=== PATIENT | male | born 1935 | race Caucasian/White ===

== ENCOUNTER → 2017-01-13 | Outpatient (CLI) | payer MEDICARE, OTHER | END | disposition home or self-care (01) | LOC: CDC 11:43 | DX: Z01.810 Encounter for preprocedural cardiovascular examination (principal); R94.31 Abnormal electrocardiogram [ECG] [EKG] | CPT/HCPCS: 93000 ==

== ENCOUNTER 2017-02-05 21:18 | Inpatient (IN) | payer OTHER ==
[~2017-02-05] VITALS: Ht 175.3 cm; Wt 86.7 kg
[~2017-02-05 21:18] MED LIST: ATORVASTATIN CA80 MG PO; GARLIC100 MG PO; LISINOPRIL10 MG PO; LO-DOSE ASPIRIN81 M2 PO; VITAMIN E1000 UNI1 PO
[2017-02-06 07:52] VITALS: BP 190/83
[2017-02-06 13:51] LABS: CREATINE KINASE 47 IU/L (1-294); TOTAL CK 47 IU/L (1-294)
[2017-02-06 14:15] VITALS: BP 163/71
[2017-02-06 14:36] LABS: CK-MB 2.2 ng/mL (0.0-4.9)
[2017-02-06] MEDS ORDERED: HYDROCODON-ACE1 EAC7 PO (14:41)
[2017-02-06 15:30] VITALS: BP 145/67
[2017-02-06 19:46] VITALS: BP 124/61
[2017-02-06 23:56] VITALS: BP 142/67
[2017-02-07 03:00] VITALS: BP 142/78
[2017-02-07 06:01] LABS: HEMATOCRIT 31.9 % (38.0-50.0); MCH 31.1 PG (29.0-34.0); MCHC 34.5 G/DL (30.0-36.0); MCV 90.1 FL (86-99); MEAN PLAT.VOLUME 10.6 uM^3 (9.0-12.4); PLATELET COUNT 146 K/uL (156-360); RBC DIS.WIDTH-CV 13.3 % (11.8-14.6); RBC DIS.WIDTH-SD 44.1 % (39-53); RED BLOOD COUNT 3.54 M/uL (4.00-5.50); WHITE BLOOD COUNT 9.4 K/uL (4.1-10.2)
[2017-02-07 06:13] LABS: ANION GAP 7 MEQ/L (2-14); CREATINE KINASE 47 IU/L (1-294); GFR ESTIMATE (CALCULATED) > 59 mL/min/ (58.99-99999); GLUCOSE 120 mg/dL (70-99); POTASSIUM 4.8 MEQ/L (3.7-5.4); SAMPLE HEMOLYSIS CHECK 2; SAMPLE ICTERIC CHECK 0; SAMPLE LIPEMIA CHECK 0; TOTAL CK 47 IU/L (1-294); UREA NITROGEN (BUN) 13 mg/dL (9-23)
[2017-02-07 06:17] LABS: CHLORIDE 92 MEQ/L (99-109); SODIUM 120 MEQ/L (136-147)
[2017-02-07 06:46] LABS: CK-MB 1.7 ng/mL (0.0-4.9)
[2017-02-07 07:22] VITALS: BP 167/77
== END 2017-02-07 12:45 | disposition home or self-care (01) | DRG 269 ==
LOC: ENRESERV 21:18 → 2SOUTH 02-06 07:13 → ENRESERV 02-06 08:54 → 4EAST 02-06 13:58 → 2SOUTH 02-06 14:56 → 4EAST 02-07 12:45
PROVIDERS: Surgery
PROC: 04V03D6 (ICD-10-PCS; principal; 2017-02-06)
DX: I71.4 Abdominal aortic aneurysm, without rupture (principal); E78.00 Pure hypercholesterolemia, unspecified; R94.31 Abnormal electrocardiogram [ECG] [EKG]; R53.82 Chronic fatigue, unspecified; R73.03 Prediabetes; Z87.891 Personal history of nicotine dependence
CPT/HCPCS: 36415; 80048; 80048 91; 82550; 82553; 83036; 85025; 85027; 86850; 86900; 86901; 93005; C1725; C1769; C1894; J0330; J0461; J0690; J1644; J1650; J2250; J2300; J2405; J2710; J2720; J3010; J7120

== ENCOUNTER 2017-07-07 09:29 | Emergency (ER) | payer OTHER ==
[~2017-07-07] VITALS: Ht 175.3 cm; Wt 81.6 kg
[~2017-07-07 09:29] MED LIST changes: +HYDROCODON-ACE1 EAC7 PO
[2017-07-07 10:20] LABS: HEMATOCRIT 36.5 % (38.0-50.0); HEMOGLOBIN 12.7 G/DL (12.5-16.6); MCH 30.8 PG (29.0-34.0); MCHC 34.8 G/DL (30.0-36.0); MCV 88.4 FL (86-99); PLATELET COUNT 194 K/uL (156-360); RBC DIS.WIDTH-CV 13.3 % (11.8-14.6); RBC DIS.WIDTH-SD 42.8 % (39-53); RED BLOOD COUNT 4.13 M/uL (4.00-5.50); WHITE BLOOD COUNT 7.8 K/uL (4.1-10.2)
[2017-07-07 10:29] LABS: CHLORIDE 105 mEq/L (99-109); POTASSIUM 4.3 mEq/L (3.7-5.4); SODIUM 140 mEq/L (136-147)
[2017-07-07 10:30] LABS: GLUCOSE 114 mg/dL (70-99)
[2017-07-07 10:34] LABS: GFR ESTIMATE (CALCULATED) > 59 mL/min/ (58.99-99999)
[2017-07-07 10:35] LABS: UREA NITROGEN (BUN) 17 mg/dL (9-23)
[2017-07-07 10:40] LABS: TROP-I INTERPRETATION NEGATIVE; TROPONIN-I 0.01 ng/mL (0.0-0.30)
[2017-07-07 14:33] VITALS: BP 128/67
== END 2017-07-07 14:33 | disposition home or self-care (01) ==
LOC: EME 09:29
DX: S32.010A Wedge compression fracture of first lumbar vertebra, initial encounter for closed fracture (principal); X50.0XXA Overexertion from strenuous movement or load, initial encounter; Y93.89 Activity, other specified; E11.9 Type 2 diabetes mellitus without complications; Z87.891 Personal history of nicotine dependence; Z79.82 Long term (current) use of aspirin
CPT/HCPCS: 72100; 74177; 80048; 84484; 85027; 93005; 99281; 99285; J3010; J7030